=== PATIENT | male | born 1955 | race Caucasian/White ===

== ENCOUNTER 2018-01-02 10:34 | Day surgery (SDC) | payer OTHER ==
[2018-01-02] MEDS ORDERED: CEFAZOLIN 2 GM/50 ML (PMX) 50 ML IVPB (11:00)
[2018-01-02] MEDS ORDERED: SOD CHLORIDE 0.9% 1,000 ML IV (11:00)
[2018-01-02] MEDS ORDERED: POLYMYXIN/BACITRACIN 1L IRRIG (13:26)
[2018-01-02] MEDS ORDERED: MIDAZOLAM 1 MG/ML 2 ML INJ (13:55)
[2018-01-02] MEDS ORDERED: SUCCINYLCHOLINE CHLORIDE 100 MG/5 ML SYG IV (13:55)
[2018-01-02] MEDS ORDERED: ROCURONIUM 50 MG INJ (13:55)
[2018-01-02] MEDS ORDERED: PROPOFOL 20 ML (13:55)
[2018-01-02] MEDS ORDERED: LIDOCAINE 2% (SDV) 5 ML INJ (13:56)
[2018-01-02] MEDS ORDERED: FENTAnyl 50 MCG/ML VIAL (13:56)
[2018-01-02] MEDS ORDERED: FAMOTIDINE 20 MG INJ (14:09)
[2018-01-02] MEDS ORDERED: ONDANSETRON 4 MG INJ (14:09)
[2018-01-02] MEDS ORDERED: DEXAMETHASONE 4 MG/ML 1 ML INJ (14:09)
[2018-01-02] MEDS ORDERED: CEFAZOLIN 1 GM INJ (14:09)
[2018-01-02] MEDS: BUPIVACAINE 0.5% (SDV) 30 ML INJ (14:24)
[2018-01-02] MEDS ORDERED: SUGAMMADEX SODIUM 200 MG/2 ML VIAL IV (15:31)
[2018-01-02] MEDS ORDERED: ACETAMINOPHEN 1000MG/100ML IV 100 ML (15:33)
[2018-01-02] MEDS ORDERED: KETOROLAC 30 MG INJ (15:42)
[2018-01-02] MEDS ORDERED: HYDROCODONE/APAP (5/325) TAB PO ×2 (16:00)
[2018-01-02] MEDS ORDERED: morphine 2 MG INJ IV (16:00)
[2018-01-02] MEDS ORDERED: ONDANSETRON 4 MG INJ IV ×2 (16:00→16:30)
[2018-01-02] MEDS ORDERED: PROCHLORPERAZINE 10 MG INJ IV (16:30)
[2018-01-02] MEDS ORDERED: OXYCODONE/ACETAMINOPHEN (5/325) TAB PO (16:30)
[2018-01-02] MEDS ORDERED: DIPHENHYDRAMINE 50 MG INJ IV (16:30)
[2018-01-02] MEDS ORDERED: MEPERIDINE 25 MG INJ IV (16:30)
[2018-01-02] MEDS ORDERED: FENTAnyl 50 MCG/ML VIAL IV ×3 (16:30)
[2018-01-02] MEDS ORDERED: HYDROmorphONE 1 MG/5 ML IV SYRINGE IV ×2 (16:30)
[2018-01-02] MEDS: HYDROmorphONE 1 MG/5 ML IV SYRINGE IV (16:41)
== END 2018-01-02 17:43 | disposition home or self-care (01) ==
LOC: SDS 10:34
DX: K40.90 Unilateral inguinal hernia, without obstruction or gangrene, not specified as recurrent (principal); E78.5 Hyperlipidemia, unspecified; Z87.891 Personal history of nicotine dependence
CPT/HCPCS: 49505; 88304